=== PATIENT | female | born 1980 | race Caucasian/White ===

== ENCOUNTER 2018-03-16 09:11 | Emergency (ER) | payer OTHER, BC ==
[~2018-03-16] VITALS: Ht 160 cm; Wt 76.0 kg
[2018-03-16 09:19] VITALS: BP 119/66
== END 2018-03-16 09:50 | disposition home or self-care (01) ==
LOC: ER 09:13
DX: M54.2 Cervicalgia (principal); M54.5 Low back pain; R51 Headache; E03.9 Hypothyroidism, unspecified; Z88.0 Allergy status to penicillin; V89.2XXA Person injured in unspecified motor-vehicle accident, traffic, initial encounter; Y93.89 Activity, other specified; Y92.488 Other paved roadways as the place of occurrence of the external cause; Y99.8 Other external cause status
CPT/HCPCS: 99281

== ENCOUNTER 2020-06-10 04:18 | Inpatient (IN) | payer BC, OTHER ==
[~2020-06-10] VITALS: Ht 160 cm; Wt 80.5 kg
[2020-06-10] MEDS ORDERED: normal saline 1000ml 1,000 ML IV ONE (05:45)
[2020-06-10] MEDS ORDERED: ketorolac tromethamine 15mg/ml inj. IV ONE (05:45)
[2020-06-10 05:50] LABS: BASOPHILS # (AUTO) 0.1 X10'3 (0-0.2); BASOPHILS % (AUTO) 0.3 % (0-1); EOSINOPHILS # (AUTO) 0.1 X10'3 (0-0.9); EOSINOPHILS % (AUTO) 0.5 % (0-6); HEMATOCRIT 38.1 % (35.0-45.0); LYMPHOCYTES # (AUTO) 1.9 X10'3 (1.1-4.8); LYMPHOCYTES % (AUTO) 11.9 % (21-51); MEAN CORPUSCULAR HEMOGLOBIN 30.1 PG (27.0-31.0); MEAN CORPUSCULAR HGB CONC 34.1 g/dL (33.0-36.5); MEAN CORPUSCULAR VOLUME 88.3 FL (78-98); MEAN PLATELET VOLUME 7.4 FL (7.4-10.4); MONOCYTES % (AUTO) 5.9 % (2-12); NEUTROPHILS # (AUTO) 13.3 X10'3 (1.8-7.7); NEUTROPHILS % (AUTO) 81.4 % (42-75); PLATELET COUNT 403 X10'3 (140-440); RED BLOOD COUNT 4.32 X10'6 (4.20-5.60); RED CELL DISTRIBUTION WIDTH 12.3 % (11.5-14.5); WHITE BLOOD COUNT 16.3 X10'3 (4.5-11.0)
[2020-06-10 06:10] LABS: D-DIMER 0.65 MG/L FEU (0-0.50)
--- NOTE | 2020-06-10 06:18 | NUR ---
Rashad, rn discharge states no need for urine collections. He states he ordered a blood HCG test
[2020-06-10 06:21] LABS: HCG SERUM QL NEGATIVE
[2020-06-10 06:29] LABS: ALANINE AMINOTRANSFERASE 30 U/L (12-78); ALBUMIN 3.3 G/DL (3.4-5.0); ALBUMIN/GLOBULIN RATIO 0.8 (1.1-1.5); ALKALINE PHOSPHATASE 85 IU/L (46-116); ANION GAP 12 (8-16); ASPARTATE AMINO TRANSFERASE 17 U/L (10-37); BILIRUBIN,TOTAL 0.4 MG/DL (0.1-1.0); BLOOD UREA NITROGEN 13 MG/DL (7-18); BUN/CREATININE RATIO 14.8 (6.6-38.0); CALCIUM 9.2 MG/DL (8.5-10.1); CHLORIDE 105 MMOL/L (99-107); CREATININE 0.88 MG/DL (0.40-0.90); GLUCOSE 105 MG/DL (70-104); POTASSIUM 4.1 MMOL/L (3.5-5.1); SODIUM 141 MMOL/L (135-145); TOTAL CARBON DIOXIDE 24.1 MMOL/L (24-32); TOTAL PROTEIN 7.2 G/DL (6.4-8.2); eGFR 72 ML/MIN
[2020-06-10] MEDS ORDERED: iohexol 350MG/ML 100ml bottle IV ONE (07:30)
[2020-06-10] MEDS ORDERED: aspirin 81mg tab.chew PO ONE ×2 (09:55→10:00)
[2020-06-10] MEDS ORDERED: SYN0.088T PO (10:35)
[2020-06-10] MEDS ORDERED: SULF1TAB45 PO (10:35)
[2020-06-10] MEDS ORDERED: heparin 25,000 UNIT/250ml bag 250 ML IV SCH (12:55)
[2020-06-10] MEDS ORDERED: heparin 10,000 units/1 ML INJ IV ONE ×2 (12:55→13:00)
[2020-06-10] MEDS ORDERED: heparin 10,000 units/1 ML INJ IV PRN (12:55)
[2020-06-10] MEDS ORDERED: HYDROcodone/acetaminophen 5mg/325mg tablet PO PRN (13:15)
[2020-06-10] MEDS ORDERED: mag hydrox/Alum hydrox/simeth 30ml oral suspension PO PRN (13:15)
[2020-06-10] MEDS ORDERED: ondansetron/PF 4mg/2ml inj IV PRN (13:15)
[2020-06-10] MEDS ORDERED: acetaminophen 325mg tablet PO PRN (13:15)
[2020-06-10] MEDS ORDERED: enoxaparin 100mg/ml syringe SUBCUT ONE (13:15)
[2020-06-10] MEDS ORDERED: HYDROcodone/acetaminophen 10/325mg tab PO PRN (13:15)
[2020-06-10] MEDS ORDERED: morphine 2 MG/ML inj. syringe IV PRN ×2 (13:15)
[2020-06-10] MEDS ORDERED: magnesium hydroxide 30ml (MOM) UD suspension PO PRN (13:15)
[2020-06-10 14:26] LABS: CREATINE KINASE 63 U/L (26-192)
[2020-06-10 14:26] LABS: PARTIAL THROMBOPLASTIN TIME 30 SECONDS (22-32)
--- NOTE | 2020-06-10 15:53 | NUR ---
Report attempted, RN Mar to call back.
--- NOTE | 2020-06-10 16:10 | NUR ---
Report received from ED RN, Nimco
[2020-06-10 17:01] VITALS: BP 107/68
--- NOTE | 2020-06-10 18:25 | NUR ---
Problems reprioritized. Patient report given, questions answered & plan of care reviewed with SHAGGY Rendon.
--- NOTE | 2020-06-10 18:26 | NUR ---
Patient in room MED 308. I have received report from PRECIOUS COON and had the opportunity to ask questions and assume patient care.
[2020-06-10 18:37] VITALS: BP 120/70
[2020-06-10] MEDS: acetaminophen 325mg tablet PO PRN (19:09)
[2020-06-10 20:00] VITALS: BP 117/92
[2020-06-10 22:00] VITALS: BP 96/60
[2020-06-11] VITALS (7 sets, daily range): BP systolic 92–115; BP diastolic 62–90
[2020-06-11] MEDS ORDERED: LORazepam 1 MG tablet PO PRN (02:20)
[2020-06-11] MEDS: acetaminophen 325mg tablet PO PRN (02:28)
[2020-06-11 05:58] LABS: BASOPHILS # (AUTO) 0.1 X10'3 (0-0.2); BASOPHILS % (AUTO) 0.8 % (0-1); EOSINOPHILS # (AUTO) 0.3 X10'3 (0-0.9); EOSINOPHILS % (AUTO) 2.3 % (0-6); HEMATOCRIT 35.8 % (35.0-45.0); HEMOGLOBIN 12.1 g/dl (12.0-16.0); LYMPHOCYTES # (AUTO) 2.3 X10'3 (1.1-4.8); LYMPHOCYTES % (AUTO) 18.9 % (21-51); MEAN CORPUSCULAR HEMOGLOBIN 29.5 PG (27.0-31.0); MEAN CORPUSCULAR HGB CONC 33.7 g/dL (33.0-36.5); MEAN CORPUSCULAR VOLUME 87.4 FL (78-98); MEAN PLATELET VOLUME 7.3 FL (7.4-10.4); MONOCYTES # (AUTO) 0.7 X10'3 (0-0.9); MONOCYTES % (AUTO) 5.4 % (2-12); NEUTROPHILS % (AUTO) 72.6 % (42-75); PLATELET COUNT 435 X10'3 (140-440); RED CELL DISTRIBUTION WIDTH 12.4 % (11.5-14.5); WHITE BLOOD COUNT 12.4 X10'3 (4.5-11.0)
[2020-06-11 06:10] LABS: ALBUMIN 2.5 G/DL (3.4-5.0); ANION GAP 9 (8-16); CALCIUM 8.2 MG/DL (8.5-10.1); CHLORIDE 103 MMOL/L (99-107); CHOLESTEROL 145 MG/DL (0-200); CREATININE 0.84 MG/DL (0.40-0.90); HDL CHOLESTEROL 49 MG/DL (35-60); LDL CHOLESTEROL 78 MG/DL (50-100); POTASSIUM 4.1 MMOL/L (3.5-5.1); SODIUM 137 MMOL/L (135-145); TOTAL CARBON DIOXIDE 24.6 MMOL/L (24-32); TRIGLYCERIDES 96 MG/DL (20-135); eGFR 75 ML/MIN
[2020-06-11 06:17] LABS: BLOOD UREA NITROGEN 12 MG/DL (7-18); BUN/CREATININE RATIO 14.3 (6.6-38.0)
[2020-06-11 06:18] LABS: GLUCOSE 94 MG/DL (70-104)
[2020-06-11] MEDS: levoTHYROXINE 88mcg tablet PO SCH (07:57)
[2020-06-11] MEDS: aspirin 81mg tablet.DR PO SCH (07:57)
[2020-06-11] MEDS: furosemide 20 MG/2 ML vial IV SCH (14:06)
[2020-06-11] MEDS ORDERED: enoxaparin 40mg/0.4ml syringe SUBCUT ONE (15:40)
[2020-06-11] MEDS ORDERED: enoxaparin 30mg/0.3ml syringe SUBCUT ONE (15:40)
[2020-06-11] MEDS ORDERED: enoxaparin 30mg/0.3ml syringe SUBCUT SCH (15:40)
[2020-06-11] MEDS ORDERED: enoxaparin 40mg/0.4ml syringe SUBCUT SCH (15:40)
[2020-06-11] MEDS ORDERED: nitroGLYCERIN 0.4mg SUBLingual tab SL PRN (16:40)
[2020-06-11] MEDS ORDERED: metoprolol tartrate 1mg/ml inj IV PRN (16:40)
--- NOTE | 2020-06-11 21:46 | NUR ---
UA sent. education given on malik scan in am. pt aware of NPO status
[2020-06-11 21:47] LABS: CLARITY,URINE CLEAR (Clear); COLOR,URINE YELLOW (Yellow); GLUCOSE, URINE NEGATIVE (Neg); KETONES,URINE NEGATIVE (Neg); LEUKOCYTE ESTERASE ,URINE NEGATIVE (Neg); NITRITES, URINE NEGATIVE (Neg); OCCULT BLOOD,URINE NEGATIVE (Neg); PH,URINE 5.5 (4.8-8.0); PROTEIN,URINE NEGATIVE (Neg); UROBILINOGEN,URINE 0.2 E.U/dL (0.2-1.0)
[2020-06-11 21:48] LABS: UA COLLECTION TYPE CLN CATCH MIDSTREAM
[2020-06-12] VITALS (16 sets, daily range): BP systolic 79–160; BP diastolic 48–81
[2020-06-12] MEDS: furosemide 20 MG/2 ML vial IV SCH ×2 (00:21→08:00)
[2020-06-12] MEDS: acetaminophen 325mg tablet PO PRN (00:24)
--- NOTE | 2020-06-12 01:29 | NUR ---
pt c/o SOB with some central chest pain after coughing. also has low grade temp 99.2 and posterior headache. tylenol given.
[2020-06-12 06:08] LABS: ALBUMIN 2.7 G/DL (3.4-5.0); ANION GAP 10 (8-16); BLOOD UREA NITROGEN 13 MG/DL (7-18); BUN/CREATININE RATIO 15.1 (6.6-38.0); CHLORIDE 103 MMOL/L (99-107); CREATININE 0.86 MG/DL (0.40-0.90); GLUCOSE 91 MG/DL (70-104); POTASSIUM 3.8 MMOL/L (3.5-5.1); SODIUM 139 MMOL/L (135-145); TOTAL CARBON DIOXIDE 26.5 MMOL/L (24-32); eGFR 73 ML/MIN
[2020-06-12 06:14] LABS: BASOPHILS # (AUTO) 0.1 X10'3 (0-0.2); BASOPHILS % (AUTO) 0.7 % (0-1); EOSINOPHILS # (AUTO) 0.3 X10'3 (0-0.9); EOSINOPHILS % (AUTO) 3.9 % (0-6); HEMATOCRIT 38.9 % (35.0-45.0); HEMOGLOBIN 13.4 g/dl (12.0-16.0); LYMPHOCYTES # (AUTO) 2.6 X10'3 (1.1-4.8); LYMPHOCYTES % (AUTO) 32.4 % (21-51); MEAN CORPUSCULAR HEMOGLOBIN 29.9 PG (27.0-31.0); MEAN CORPUSCULAR HGB CONC 34.4 g/dL (33.0-36.5); MONOCYTES # (AUTO) 0.4 X10'3 (0-0.9); MONOCYTES % (AUTO) 4.6 % (2-12); NEUTROPHILS # (AUTO) 4.8 X10'3 (1.8-7.7); NEUTROPHILS % (AUTO) 58.4 % (42-75); PLATELET COUNT 459 X10'3 (140-440); RED BLOOD COUNT 4.47 X10'6 (4.20-5.60); RED CELL DISTRIBUTION WIDTH 12.5 % (11.5-14.5); WHITE BLOOD COUNT 8.2 X10'3 (4.5-11.0)
--- NOTE | 2020-06-12 06:25 | NUR ---
reported to days. noted pt resting w/o distress. aware of NPO status.
--- NOTE | 2020-06-12 06:44 | NUR ---
Patient in room MED 308. I have received report from Adrián COON and had the opportunity to ask questions and assume patient care.
[2020-06-12] MEDS: levoTHYROXINE 88mcg tablet PO SCH (07:16)
[2020-06-12] MEDS: aspirin 81mg tablet.DR PO SCH (07:16)
--- NOTE | 2020-06-12 07:22 | NUR ---
Holding patient furosimide at this time until after malik.
[2020-06-12] MEDS: regadenoson 0.4mg/5ml syringe IV PRN ×2 (09:28→09:48)
[2020-06-12] MEDS: aminophylline 250mg/10ml inj. IV PRN (09:48)
--- NOTE | 2020-06-12 11:33 | NUR ---
PAGER ID: [phone] MESSAGE: Jeremías ACCE [id number] re: [id number] [place], Patient malik is resulted and ready for viewing. Thanks Jeremías.
--- NOTE | 2020-06-12 13:52 | NUR ---
PAGER ID: [phone] MESSAGE: ADAMA SURG [id number] Re: CROFOOT, SCOOBY PATIENT LARISSA IS RESULTED AND PATIENT FEELS NEW ON SET BILATERAL ANKLE PAIN. THANKS ADAMA
[2020-06-12] MEDS ORDERED: ASPI-1071 PO (14:40)
[2020-06-12] MEDS ORDERED: FURO-150 PO (14:40)
--- NOTE | 2020-06-12 17:00 | NUR ---
Patient discharge was done with family in room, Patient expressed verbal understanding of medication and follow up instructions. Patient IV was taken out at time of discharge sites showed minimal bleeding, and canula was fulling intact upon inspection.
--- NOTE | 2020-06-13 11:59 | NUR ---
CASE MANAGEMENT DISCHARGE FOLLOW UP: Spoke with pt via telephone. Reports that she is doing okay; denies CP/palpitations, SOB, dizziness, swelling. Verbalizes understanding of s/sx requiring further evaluation/emergent assistance. Pt wants to know if she can take both lasix and aspirin together, advised that she may. Pt wants to know if lasix doses have to be 12 hours apart exactly, advised to keep as close to 12 hrs as possible, but an hour on either side will be fine. Verbalizes compliance with MD discharge instructions. Verbalizes understanding of the importance in making/keeping follow-up appointments, will see PCP tomorrow, 06/14/20. Pt states that she is worried about her WBC level from hospitalization, advised pt that WBC level was trending down and was WNL at time of discharge. Advised that things such as steroid use can cause WBC level to increase, pt states that she had been taking prednisone prior to admission. Pt will f/u with PCP regarding TREMAINE test. Pt states no further questions/concerns at this time.
== END 2020-06-12 16:33 | disposition home or self-care (01) | DRG 282 ==
LOC: ER 04:18 → ED HOLD 13:13 → MED 3N 16:40
PROVIDERS: ADMIT Internal Medicine; ATTEND Internal Medicine
PROC: B32T1ZZ Computerized Tomography (CT Scan) of Left Pulmonary Artery using Low Osmolar Contrast (ICD-10-PCS; 2020-06-10)
PROC: B3201ZZ Computerized Tomography (CT Scan) of Thoracic Aorta using Low Osmolar Contrast (ICD-10-PCS; 2020-06-10)
PROC: B32S1ZZ Computerized Tomography (CT Scan) of Right Pulmonary Artery using Low Osmolar Contrast (ICD-10-PCS; 2020-06-10)
PROC: 4A02XM4 Measurement of Cardiac Total Activity, External Approach (ICD-10-PCS; principal; 2020-06-12)
PROC: 3E073KZ Introduction of Other Diagnostic Substance into Coronary Artery, Percutaneous Approach (ICD-10-PCS; 2020-06-12)
DX: I50.813 Acute on chronic right heart failure (principal); I21.A1 Myocardial infarction type 2; E03.9 Hypothyroidism, unspecified; M79.10 Myalgia, unspecified site; I27.20 Pulmonary hypertension, unspecified; R70.0 Elevated erythrocyte sedimentation rate; Z86.16 Personal history of COVID-19; Z79.82 Long term (current) use of aspirin; Z79.899 Other long term (current) drug therapy; Z80.1 Family history of malignant neoplasm of trachea, bronchus and lung; Z88.0 Allergy status to penicillin; Z79.890 Hormone replacement therapy
CPT/HCPCS: 36415; 71045; 71275; 78452; 80048; 80053; 80061; 81003; 82550; 83880; 84145; 84443; 84484; 84703; 85025; 85379; 85610; 85651; 85730; 86038; 87081; 93005; 93017; 93306; 99285; A9500; G0378; J0280; J1644; J1650; J1885; J1940; J2785; J7030; Q9967

== ENCOUNTER 2023-07-16 21:50 | Emergency (ER) | payer BC ==
[~2023-07-16] VITALS: Ht 160 cm; Wt 79.5 kg
[~2023-07-16 21:50] MED LIST: ASPI-1071 PO; FURO-150 PO; SYN0.088T PO
[2023-07-16 22:01] VITALS: TEMP 98.2
[2023-07-16 22:20] LABS: MEAN CORPUSCULAR HEMOGLOBIN 30.1 PG (27.0-31.0)
[2023-07-16 22:22] LABS: BASOPHILS # (AUTO) 0.1 X10'3 (0-0.2); BASOPHILS % (AUTO) 0.6 % (0-1); EOSINOPHILS # (AUTO) 0.1 X10'3 (0-0.9); EOSINOPHILS % (AUTO) 0.5 % (0-6); HEMATOCRIT 42.7 % (35.0-45.0); HEMOGLOBIN 14.6 g/dl (12.0-16.0); LYMPHOCYTES # (AUTO) 1.6 X10'3 (1.1-4.8); LYMPHOCYTES % (AUTO) 13.8 % (21-51); MEAN CORPUSCULAR HGB CONC 34.1 g/dL (33.0-36.5); MEAN CORPUSCULAR VOLUME 88.2 FL (78-98); MEAN PLATELET VOLUME 7.1 FL (7.4-10.4); MONOCYTES # (AUTO) 0.4 X10'3 (0-0.9); MONOCYTES % (AUTO) 3.8 % (2-12); NEUTROPHILS # (AUTO) 9.4 X10'3 (1.8-7.7); NEUTROPHILS % (AUTO) 81.3 % (42-75); PLATELET COUNT 361 X10'3 (140-440); RED BLOOD COUNT 4.84 X10'6 (4.20-5.60); RED CELL DISTRIBUTION WIDTH 12.4 % (11.5-14.5); WHITE BLOOD COUNT 11.5 X10'3 (4.5-11.0)
[2023-07-16 22:28] LABS: APTT 29 SECONDS (22-32); INR 1.1 INR; PROTHROMBIN TIME 11.2 SECONDS (9.0-12.0)
[2023-07-16 22:29] LABS: ALANINE AMINOTRANSFERASE 27 U/L (12-78); ALBUMIN 3.7 G/DL (3.4-5.0); ALKALINE PHOSPHATASE 72 IU/L (46-116); ANION GAP 9 (8-16); ASPARTATE AMINO TRANSFERASE 32 U/L (10-37); BILIRUBIN,TOTAL 0.8 MG/DL (0.1-1.0); BLOOD UREA NITROGEN 15 MG/DL (7-18); CHLORIDE 100 MMOL/L (99-107); CREATININE 0.94 MG/DL (0.40-0.90); GLUCOSE 114 MG/DL (70-104); POTASSIUM 3.3 MMOL/L (3.5-5.1); SODIUM 134 MMOL/L (135-145); TOTAL CARBON DIOXIDE 25.5 MMOL/L (24-32); TOTAL PROTEIN 7.4 G/DL (6.4-8.2); eCRCL 64 ML/MIN; eGFR 65 ML/MIN
[2023-07-16 22:40] LABS: FREE T4 (FREE THYROXINE) 1.13 NG/DL (0.73-1.40); PRO BRAIN NATRIURETIC PEPTIDE 42 PG/ML (0-125); THYROID STIMULATING HORMONE 10.17 ulU/ml (0.34-4.50)
[2023-07-16 23:02] LABS: HCG SERUM QL NEGATIVE
[2023-07-17] MEDS: acetaminophen 325mg tablet PO ONE (00:53)
[2023-07-17] MEDS: ibuprofen tablet 400 MG TABLET PO ONE (00:53)
[2023-07-17 01:24] LABS: BILIRUBIN,URINE NEGATIVE (Neg); CLARITY,URINE SLIGHTLY CLOUDY (Clear); COLOR,URINE YELLOW (Yellow); GLUCOSE, URINE NEGATIVE (Neg); KETONES,URINE NEGATIVE (Neg); LEUKOCYTE ESTERASE ,URINE NEGATIVE (Neg); NITRITES, URINE NEGATIVE (Neg); OCCULT BLOOD,URINE NEGATIVE (Neg); PROTEIN,URINE NEGATIVE (Neg); UROBILINOGEN,URINE 0.2 E.U/dL (0.2-1.0)
[2023-07-17 01:28] LABS: UA COLLECTION TYPE CLN CATCH MIDSTREAM
[2023-07-17 01:30] LABS: BACTERIA,URINE FEW /HPF (Neg); RBC,URINE 0-2 /HPF (0-2); SQUAMOUS EPITHELIAL CELL,UR MANY /LPF (FEW); WBC,URINE 0-4 /HPF (0-4)
[2023-07-17 01:31] LABS: MUCUS STRANDS FEW /LPF (Neg); TRANSITIONAL EPI CELLS,URINE FEW /HPF
[2023-07-17 01:32] LABS: URINE AMPHETAMINE SCREEN POSITIVE (Neg); URINE BARBITUATE SCREEN NEGATIVE (Neg); URINE BENZODIAZEPINES SCREEN NEGATIVE (Neg); URINE CANNABINOID SCREEN NEGATIVE (Neg); URINE COCAINE SCREEN NEGATIVE (Neg); URINE METHADONE SCREEN NEGATIVE (Neg); URINE OPIATE SCREEN NEGATIVE (Neg); URINE PHENCYCLIDINE SCREEN NEGATIVE (Neg)
[2023-07-17 02:14] VITALS: BP 106/63; PULSE 81; RESP 20; O2SAT 97
[2023-07-17] MEDS ORDERED: DEC4T PO (21:07)
== END 2023-07-17 02:18 | disposition home or self-care (01) ==
LOC: ER 21:50
DX: R07.89 Other chest pain (principal); E03.9 Hypothyroidism, unspecified; Z88.0 Allergy status to penicillin; Z79.82 Long term (current) use of aspirin; Z79.899 Other long term (current) drug therapy
CPT/HCPCS: 36415; 71045; 80053; 80305; 81001; 83605; 83880; 84439; 84443; 84484; 84703; 85025; 85610; 85730; 87040; 93005; 99285

== ENCOUNTER 2023-07-17 14:44 | Emergency (ER) | payer BC ==
[~2023-07-17] VITALS: Ht 160 cm; Wt 82.2 kg
[2023-07-17 14:47] VITALS: BP 125/75; PULSE 116; RESP 16; O2SAT 96
[2023-07-17] MEDS: acetaminophen 325mg tablet PO ONE (15:12)
[2023-07-17 16:02] LABS: D-DIMER 1.04 MG/L FEU (0-0.50)
[2023-07-17 18:41] VITALS: TEMP 99.7
[2023-07-17] MEDS: ibuprofen tablet 400 MG TABLET PO ONE (18:48)
[2023-07-17] MEDS ORDERED: iohexol 350MG/ML 100ml bottle IV ONE (19:42)
[2023-07-17] MEDS ORDERED: DEC4T PO (21:07)
== END 2023-07-17 22:31 | disposition home or self-care (01) ==
LOC: ER 14:45
DX: B34.9 Viral infection, unspecified (principal); Z20.822 Contact with and (suspected) exposure to COVID-19; E03.9 Hypothyroidism, unspecified; Z88.0 Allergy status to penicillin; Z79.82 Long term (current) use of aspirin; Z79.899 Other long term (current) drug therapy
CPT/HCPCS: 36415; 71045; 71275; 85379; 87811; 93005; 99285; J3490; Q9967